=== PATIENT | female | born 1925 | race Caucasian/White ===

== ENCOUNTER 2017-01-09 19:12 | Outpatient (CLI) | payer MEDICARE, OTHER | END 2017-01-09 19:13 | disposition critical access hospital (66) | LOC: EMS 19:12 | PROVIDERS: ATTEND Surgery | DX: R07.9 Chest pain, unspecified (principal) | CPT/HCPCS: A0425; A0429 ==

== ENCOUNTER 2017-01-09 19:35 | Observation (INO) | payer MEDICARE, OTHER ==
[2017-01-09 21:28] LABS: BASOPHILS # (AUTO) 0.1 10^3/uL (0.0-0.1); EOSINOPHILS # (AUTO) 0.3 10^3/uL (0.0-0.7); EOSINOPHILS % (AUTO) 2.6 %; HCT - HEMATOCRIT 35.7 % (37.0-47.0); LYMPHOCYTES # (AUTO) 2.7 10^3/uL (1.5-3.5); LYMPHOCYTES % (AUTO) 21.5 %; MEAN CORPUSCULAR HEMOGLOBIN 30.5 pg (27.0-31.0); MEAN CORPUSCULAR HGB CONC 33.5 g/dL (32.0-36.0); MEAN PLATELET VOLUME 7.3 fL (7.9-10.8); MONOCYTES # (AUTO) 1.1 10^3/uL (0.0-1.0); NEUTROPHILS # (AUTO) 8.2 10^3/uL (1.5-6.6); NEUTROPHILS % (AUTO) 65.9 %; RED BLOOD COUNT 3.92 10^6/uL (4.20-5.40); RED CELL DISTRIBUTION WIDTH 14.5 % (12.0-15.0); UNCORRECTED WHITE BLOOD COUNT 12.5 x10^3/uL; WHITE BLOOD COUNT 12.5 x10^3/uL (4.8-10.8)
--- NOTE | 2017-01-09 21:30 | XRAY Preliminary Report ---
Exam: XR Chest 1 View IMPRESSION: 1. Blunted right costophrenic angle, question trace pleural fluid. 2. No focal infiltrate or consolidation appreciated. [facility] SITE ID: [id number]
--- NOTE | 2017-01-09 21:32 | XRAY Report ---
EXAM: CHEST RADIOGRAPHY EXAM DATE: 01/09/2017 09:11 PM. CLINICAL HISTORY: Chest pain. COMPARISON: 07/15/2015. 05/03/2015. TECHNIQUE: 1 view. FINDINGS: Lungs/Pleura: There is hazy increased density in the lateral mid to lower lungs bilaterally, attribut ed to attenuation artifact from the patient's breast implants. No focal infiltrate or consolidation a ppreciated. The right costophrenic angle is slightly blunted. No pneumothorax although the patient's chin obscures the lung apices. Mediastinum: Stable heart size. There is atherosclerotic calcification of the aortic arch. Stable pro ximal aortic stent. Other: None. IMPRESSION: 1. Blunted right costophrenic angle, question trace pleural fluid. 2. No focal infiltrate or consolidation appreciated. [facility] Referring Provider Line: [phone] SITE ID: [id number]
[2017-01-09 21:35] LABS: INR 1.1 (0.8-1.2); PT - PROTHROMBIN TIME 12.3 secs (9.9-12.6)
[2017-01-09 21:42] LABS: PARTIAL THROMBOPLASTIN TIME 26.9 secs (24.9-33.3)
[2017-01-09 21:43] LABS: ALBUMIN/GLOBULIN RATIO 1.4 (1.0-2.2); BILIRUBIN,TOTAL 0.8 mg/dL (0.2-1.0); CALCIUM 8.8 mg/dL (8.5-10.3); CREATININE 1.3 mg/dL (0.4-1.0); POTASSIUM 3.8 mmol/L (3.5-5.0); TOTAL PROTEIN 6.7 g/dL (6.7-8.2)
[2017-01-09] MEDS ORDERED: ASPIRIN CHEW 81 MG TABLET PO STA (23:57)
--- NOTE | 2017-01-09 23:58 | ED Physician Documentation ---
PD HPI CHEST PAIN - Stated complaint Stated Complaint: CP - Chief complaint Chief Complaint: Cardiac - History obtained from History obtained from: Patient, Friend - History of Present Illness Timing - onset: Today Timing - onset during: Light activity Timing - details: Gradual onset, Now resolved Quality: Pressure, Aching Location: Substernal, Left chest Improved by: Rest Worsened by: Exertion Associated symptoms: No: Shortness of air, Diaphoresis, Nausea, Vomiting Similar symptoms before: Work up / diagnostics, Treatment, Follow up Recently seen: Not recently seen - Additional information Additional information: Patient is an 89 year old female with multiple co-morbidities including acs, and aortic valve replacement who is presenting to the emergency department for chest pain. according to patient and family, earlier today patient was stung by a wasp, but her symptoms dissipated. later on in the evening patient was walking when she developed some chest pressure. Patient's family called ems. ems treated patient was aspirin enroute. Review of Systems Constitutional: denies: Fever, Chills Eyes: denies: Decreased vision Ears: denies: Ear pain, Drainage/discharge Nose: denies: Congestion Throat: denies: Sore throat Cardiac: reports: Chest pain / pressure. denies: Palpitations, Pedal edema, Calf pain Respiratory: denies: Cough GI: denies: Abdominal Pain, Nausea, Vomiting : denies: Dysuria, Frequency Skin: denies: Rash, Lesions Musculoskeletal: denies: Neck pain, Back pain, Extremity pain Neurologic: reports: Generalized weakness. denies: Focal weakness, Numbness, Altered mental status, Headache, Head injury Immunocompromised: denies: Immunocompromised PD PAST MEDICAL HISTORY - Past Medical History Past Medical History: Yes Cardiovascular: Congestive heart failure, Coronary artery disease, Peripheral Vascular Disease Respiratory: None Neuro: Dementia Endocrine/Autoimmune: None GI: GERD : None HEENT: None Psych: None Musculoskeletal: None Derm: Herpes zoster - Past Surgical History Past Surgical History: Yes /[employer]: Mastectomy, Breast implants Cardiovascular: Valve replacement, Angioplasty HEENT: Tonsil/Adenoidectomy - Present Medications Home Medications: Ambulatory Orders Medication Instructions Recorded Confirmed Aspirin 81 mg PO DAILY 05/03/15 01/09/17 Atorvastatin Calcium [Lipitor] 20 mg PO DAILY 05/03/15 01/09/17 Carvedilol 3.125 mg PO BID 05/03/15 01/09/17 Spironolactone 25 mg PO DAILY 05/03/15 01/09/17 Lisinopril 1 tab PO DAILY 01/09/17 01/09/17 - Allergies Allergies/Adverse Reactions: Allergies Allergy/AdvReac Type Severity Reaction Status Date / Time codeine Allergy Unknown Verified 01/09/17 19:43 - Social History Does the pt smoke?: No Smoking Status: Never smoker Does the pt drink ETOH?: No Does the pt have substance abuse?: No - Immunizations Immunizations are current?: Yes - POLST Patient has POLST: No PD ED PE NORMAL - Vitals Vital signs reviewed: Yes - General General: Alert and oriented X 3 - HEENT HEENT: Atraumatic - Abdomen Abdomen: Soft, Non tender, Non distended - Derm Derm: Warm and dry, No rash - Extremities Extremities: No deformity, No edema - Neuro Neuro: Alert and oriented X 3, No sensory deficit, Normal speech - Psych Psych: Normal mood PD ED PE EXPANDED - HEENT HEENT: Dry mucous membranes - Eyes Eyes: Eyelid erythema - Neck Neck: JVD present - Cardiac Cardiac: Murmur Present - Respiratory Respiratory: Decreased breath sounds, Right lower lobe, Left lower lobe. No: Accessory mm use Results - Vitals Vitals: Vital Signs - 24 hr 01/09/17 01/09/17 19:39 21:52 Temperature 36.7 C Heart Rate 90 71 Respiratory 18 16 Rate Blood Pressure 160/89 H 140/76 H O2 Saturation 98 100 Oxygen O2 Source Room air - EKG (time done) 1946 Rate: Rate (enter#) (83) Rhythm: NSR Intervals: Normal CA, LBBB Compare to prior EKG: Unchanged from prior EKG - Labs Labs: Laboratory Tests 01/09/17 01/09/17 01/09/17 21:19 21:19 21:19 WBC 12.5 H RBC 3.92 L Hgb 12.0 Hct 35.7 L MCV 91.0 MCH 30.5 MCHC 33.5 RDW 14.5 Plt Count 298 MPV 7.3 L Neut # 8.2 H Lymph # 2.7 [place] # 1.1 H Eos # 0.3 Baso # 0.1 Absolute Nucleated RBC 0.00 Nucleated RBCs 0.0 PT 12.3 INR 1.1 APTT 26.9 Sodium 139 Potassium 3.8 Chloride 106 Carbon Dioxide 24 Anion Gap 9.0 BUN 29 H Creatinine 1.3 H Estimated GFR (MDRD) 39 L Glucose 95 Calcium 8.8 Total Bilirubin 0.8 AST 28 ALT 13 Alkaline Phosphatase 63 Troponin I B-Natriuretic Peptide Total Protein 6.7 Albumin 3.9 Globulin 2.8 Albumin/Globulin Ratio 1.4 Lipase 30 01/09/17 01/09/17 01/09/17 21:19 21:19 22:54 WBC RBC Hgb Hct MCV MCH MCHC RDW Plt Count MPV Neut # Lymph # [place] # Eos # Baso # Absolute Nucleated RBC Nucleated RBCs PT INR APTT Sodium Potassium Chloride Carbon Dioxide Anion Gap BUN Creatinine Estimated GFR (MDRD) Glucose Calcium Total Bilirubin AST ALT Alkaline Phosphatase Troponin I 0.07 0.16 B-Natriuretic Peptide 256 H Total Protein Albumin Globulin Albumin/Globulin Ratio Lipase - Rads (name of study) chest x-ray Radiology: Final report received (right trace pleural effusion) PD MEDICAL DECISION MAKING - ED course Complexity details: reviewed old records, reviewed results, re-evaluated patient , considered differential, d/w patient, d/w application consultant ED course: Patient was seen and examined at bedside. IV access was gained and labs were drawn. ekg was performed and was unchanged when compared to previous. chest x- ray showed no major abnormality. Patient's troponin was elevated but below the threshold. Repeat troponin almost doubled. case was discussed with the hospitalist who agreed to hospitalization. Departure - Departure Disposition: 66 [facility] DC/Xfer Clinical Impression: Elevated troponin, Chest pain Condition: Stable
[2017-01-10] MEDS ORDERED: MORPHINE 2 MG/ML SYRINGE IVP PRN (01:21)
[2017-01-10] MEDS ORDERED: SODIUM CHLORIDE FLUSH 0.9% 10 ML SYRINGE IVP PRN (01:21)
[2017-01-10] MEDS ORDERED: ACETAMINOPHEN 325 MG TABLET PO PRN (01:21)
[2017-01-10] MEDS ORDERED: PROCHLORPERAZINE 10 MG/2 ML VIAL IVP PRN (01:21)
[2017-01-10] MEDS ORDERED: NITROGLYCERIN SL 0.4 MG TABLET SL STA (01:29)
--- NOTE | 2017-01-10 04:26 | HISTORY & PHYSICAL EXAMINATION ---
DATE OF ADMISSION: 01/10/2017 HISTORY OF PRESENT ILLNESS: This is an 89-year-old white female with a history of coronary disease with stenting done 2 years ago and also had aortic valve replacement. She is followed by a loom doffer in [place]. She lives with her daughter. Today, she suffered a bee sting on her finger for which the daughter gave her Benadryl and there was no major reaction. Today, the patient was walking outside which she normally does and the daughter noticed that she was walking more slowly and asked how her mother was doing and the mother complained of chest pain which she rated a 7/10. The daughter called EMS and eventually the patient was brought to the emergency room. Since being evaluated here, there has been no further chest pain and the patient is currently sleeping. The patient only received aspirin in the emergency room, no narcotics or nitro treatments. ALLERGIES: CODEINE WITH AN UNKNOWN REACTION. MEDICATIONS AT HOME: 1. Carvedilol 25 mg p.o. b.i.d. 2. Spironolactone 25 mg daily. 3. Baby aspirin daily. 4. Lipitor 20 mg daily. 5. Lisinopril 2.5 mg p.o. daily. REVIEW OF SYSTEMS: Only as above. There have been no recent new medications, no travel, no fever, no heart failure symptoms and her chest pain is very infrequent according to the daughter. FAMILY HISTORY: Noncontributory at this advanced age. SOCIAL HISTORY: She lives with her daughter, never smoked, drinks no alcohol. PHYSICAL EXAMINATION: GENERAL: Reveals a thin, elderly white female. She is in no distress. She is sleeping in the right lateral decubitus position in the emergency room while I am speaking to her daughter. VITAL SIGNS: Blood pressure 160/90, heart rate is in the 90s. She is in sinus rhythm with a bundle branch block, afebrile. HEENT: Unremarkable. She is somnolent, her oral airway was not evaluated. NECK: Positive JVD at 10-degree upright angle. There are no carotid bruits, no thyromegaly. CHEST: Clear at the anterior bases. Heart sounds have soft S1, S2 and 2/6 honking systolic murmur heard at the lower left sternal border without radiation. There is an RV heave present. There is no gallop. ABDOMEN: Soft. EXTREMITIES: No clubbing, cyanosis, or edema. NEUROLOGIC: Neurologically she is currently somnolent, so this was unable to be evaluated overall. LABORATORY DATA: BUN 41, creatinine 1.2, magnesium 1.8. Normal liver test. First troponin is 0.07, the next troponin went up to 0.16. Lipase normal. White blood count 12.5, hemoglobin 12, platelet count normal. Her sodium was 139, potassium 3.8, BUN 29, creatinine 1.3. BNP 256. Lipase normal. INR normal. Chest x-ray, no pulmonary disease pattern except for a blunted right costophrenic angle and normal cardiac silhouette and the aortic valve ring is noted. EKG: Normal sinus rhythm, left bundle branch block which is old. IMPRESSION: 1. Anginal episode with rising troponins. Rule out myocardial infarction, therefore, because of the trend of the troponins. 2. History of coronary disease with medications that suggest she has ischemic cardiomyopathy (carvedilol, KEVIN inhibitor, Spironolactone). 3. History of aortic valve replacement with a murmur present. 4. Chronic left bundle branch block. 5. Hypertension. PLAN: Place the patient in observation to follow the troponins. The EKG is not helpful to look for any ischemic changes, as she has chronic left bundle branch block . Continue with her pre-ER medications. If she rules in, she will be transferred from observation to inpatient status. JOB #: [id number] EXT JOB #:[id number] QUAN
[2017-01-10] MEDS ORDERED: SODIUM CHLORIDE FLUSH 0.9% 10 ML SYRINGE IVP SCH (06:00)
[2017-01-10 07:45] VITALS: BP 144/63
[2017-01-10] MEDS ORDERED: CARVEDILOL 3.125 MG TABLET PO SCH (09:00)
[2017-01-10] MEDS ORDERED: ENOXAPARIN 30 MG/0.3 ML SYRINGE SUBQ SCH (09:00)
[2017-01-10] MEDS ORDERED: CARVEDILOL 3.125 MG PO SCH (09:00)
[2017-01-10] MEDS ORDERED: LISINOPRIL 5 MG TABLET PO SCH (09:00)
[2017-01-10] MEDS ORDERED: SPIRONOLACTONE 25 MG TABLET PO SCH (09:00)
[2017-01-10] MEDS ORDERED: LISINOPRIL PO SCH ×2 (09:00)
[2017-01-10] MEDS ORDERED: ASPIRIN 81 MG PO SCH (09:00)
[2017-01-10] MEDS ORDERED: ATORVASTATIN CALCIUM 20 MG PO SCH (09:00)
[2017-01-10] MEDS ORDERED: FAMOTIDINE 20 MG TABLET PO SCH (09:00)
[2017-01-10] MEDS ORDERED: ASPIRIN CHEW 81 MG TABLET PO SCH (09:00)
[2017-01-10] MEDS ORDERED: POLYETHYLENE GLYCOL 3350 17 GM PACKET PO SCH (09:00)
--- NOTE | 2017-01-10 11:26 | Discharge Plan ---
Discharge Plan Disposition: 01 Home, Self Care Condition: Good Diet: Regular Activity Restrictions: Activity as Tolerated Shower Restrictions: No Driving Restrictions: Yes (none) Assistance Devices: Walker Weight Bearing: Full Weight Additional Instructions or Follow Up instructions: Continue your usual medications. Enjoy each day. Make an appt to see your Doctor in the next [address] Perez. No Smoking: If you smoke, Please STOP! Call for help. Follow-up with: Trini Goldman MD [Primary Care Provider] - 2 Weeks
[2017-01-10] MEDS ORDERED: ATORVASTATIN 10 MG TABLET PO SCH (21:00)
--- NOTE | 2017-01-11 09:50 | DISCHARGE SUMMARY ---
DATE OF ADMISSION: 01/10/2017 DATE OF DISCHARGE: 01/10/2017 PRIMARY CARE PHYSICIAN: Dr. Trini Goldman. SPECIAL PROCEDURES: None. CONSULTATIONS: None. HOSPITAL COURSE AND MANAGEMENT SUMMARY: This is an 89-year-old white female, history of coronary disease with stenting done 2 years ago and had also has aortic valve replacement. She is followed by a dairy and food laboratory assistant in [place]. She had a bee sting on her finger today. Did not have a reaction except localized. The patient was noted to b e walking more slowly than usual and the patient says herself she walks a lot and the patient, when a sked by her daughter said she has pain, which was 7/10. She was brought to the emergency department a nd now in the hospital has no complaint of pain. Because of the cardiac history and complaint chest p ain, the patient had serial troponins which were all negative and the patient was discharged home to follow up with her PCP, Trini Goldman. PHYSICAL EXAMINATION VITAL SIGNS: Before discharge, 36.5, 62, 144/63, 15, 98% on room air. ENT: Eyes, EOM within normal limits, PERRL, nonicteric. MOUTH AND THROAT: Moist mucous membranes. No other pathology noted. NECK: No lymphadenopathy. No JVD. No thyromegaly. CHEST WALL: Nontender. No breast exam done. HEART: Sinus rhythm 2/6 murmur left sternal border. LUNGS: Clear, good air movement. ABDOMEN: Soft, nontender. NEURO: There are some of cognitive deficits, nonfocal, consistent with dementia, but the patient is i nteractive and quite delightful. LABORATORY DATA: The patient had troponins 0.7, 0.16, 0.42, 0.35. BNP was 256, the normal limits of n ormal, are 0.49 at [facility]. The patient is discharged home as noted. ALLERGIES: ONLY AN ALLERGY CODEINE. MEDICATIONS AT HOME 1. Spironolactone 25 mg a day. 2. Lisinopril 1 tab a day, unknown dose. 3. Carvedilol 3.125 twice a day. 4. Atorvastatin 20 mg a day. 5. Aspirin 81 mg a day. The patient's daughter was called and informed of the patient's course and arrived to escort her mom home. Time spent in discharge activity less than 30 minutes and the patient was examined on the day o f discharge. JOB #: [id number] EXT JOB #:[id number]
== END 2017-01-10 12:30 | disposition home or self-care (01) ==
LOC: EDUNIT# → ED 19:35 → OBS 01-10 01:25
PROVIDERS: ADMIT Internal Medicine; ATTEND Internal Medicine
DX: R07.9 Chest pain, unspecified (principal); I25.10 Atherosclerotic heart disease of native coronary artery without angina pectoris; I11.0 Hypertensive heart disease with heart failure; I44.7 Left bundle-branch block, unspecified; I50.9 Heart failure, unspecified; R79.89 Other specified abnormal findings of blood chemistry; Z95.5 Presence of coronary angioplasty implant and graft; Z95.2 Presence of prosthetic heart valve; Z79.82 Long term (current) use of aspirin; Z79.899 Other long term (current) drug therapy
CPT/HCPCS: 36415; 71010; 80053; 83690; 83880; 84484; 85025; 85610; 85730; 93005; 96372; 99285; A9270; G0378; J1650; 99284